=== PATIENT | female | born 1950 | race African-American/Black ===

== ENCOUNTER 2021-01-20 09:21 | Emergency (ER) | payer SELFPAY ==
[~2021-01-20] VITALS: Ht 172.7 cm; Wt 68.0 kg
[2021-01-20] MEDS ORDERED: ONDANSETRON HCL 4MG/2ML INJ IV STA (09:39)
[2021-01-20] MEDS ORDERED: DIPHENHYDRAMINE 25MG CAPSULE PO ONE (09:45)
[2021-01-20] MEDS ORDERED: SODIUM CHLORIDE 0.9% 1,000 ML IV ONE (09:45)
[2021-01-20 10:10] LABS: BASOPHILS % 0.4 % (0.0-2.0); EOSINOPHILS % 0.7 % (0.0-5.0); HEMATOCRIT. 39.3 % (36.0-48.0); HEMOGLOBIN. 12.4 g/dL (12.0-16.0); LYMPHOCYTES % 25.5 % (20.0-50.0); MEAN CORPUSCULAR HEMOGLOBIN 25.4 pg (28.0-32.0); MEAN CORPUSCULAR VOLUME 80.1 fL (81.0-99.0); MEAN PLATELET VOLUME 8.9 fl (7.4-10.4); MONOCYTES % 6.8 % (2.0-8.0); NEUTROPHILS % 66.6 % (40.0-76.0); PLATELET 177 x1000/uL (130-400); RED BLOOD CELL COUNT 4.91 mill/uL (4.2-5.4); RED CELL DISTRIBUTION WIDTH 13.7 % (11.6-14.6)
[2021-01-20 10:16] LABS: CHLORIDE 104 mEq/L (98-107)
[2021-01-20] MEDS ORDERED: ONDA4TAB5 PO (11:12)
[2021-01-20 11:30] VITALS: BP 148/72
== END 2021-01-20 11:41 | disposition home or self-care (01) ==
LOC: ER 09:21
DX: R42 Dizziness and giddiness (principal); R11.2 Nausea with vomiting, unspecified; I10 Essential (primary) hypertension
CPT/HCPCS: 36415; 80053; 85025; 93005; 96361; 96374; 99284; J2405; J7030; Q0163